=== PATIENT | female | born 1980 | race Caucasian/White ===

== ENCOUNTER 2017-01-05 12:46 | Day surgery (SDC) | payer OTHER ==
[~2017-01-05] VITALS: Ht 172.7 cm; Wt 77.1 kg
[~2017-01-05 12:46] MED LIST: LACT1CAP65 PO; MAGN100T5 PO; PSYL1000 MC
[2017-01-05 13:33] VITALS: BP 128/84; PULSE 67; RESP 16; O2SAT 100
[2017-01-05] MEDS ORDERED: fentaNYL-PF 50 mCg/mL 2 mL Inj IVPUSH PRN (13:45)
[2017-01-05] MEDS ORDERED: 0.9% Sodium Chloride 1,000 ML IV PRN (13:45)
[2017-01-05] MEDS ORDERED: Sodium Chloride LOK Flush 10 mL Syringe IV PRN (13:45)
--- NOTE | 2017-01-05 15:22 | PCM.ENDEGD ---
EGD Date of Service: Jan 05, 2017 Physician Michael Otero MD Pre Procedure Diagnosis: Abdominal pain Post Procedure Dx & Findings: Gastritis Procedure Esophagogastroduodenoscopy PROCEDURE IN DETAIL: After proper sedation, Olympus video endoscope was inserted into patient's mouth and esophagus was successfully intubated. Scope introduced esophagus. Esophagus showed normal shiny whitish mucosa consistent with squamous cell component. Z line was intact at 40 cm from the incisors. Scope further advanced to the stomach. Stomach showed patches of redness irritation consistent with gastritis. Biopsies obtained. Cardia fundus body antrum pylorus were all visualized. Retroflexion was done. Stomach was easily inflated and deflatable using air. Scope further advanced to the distal duodenum. Duodenum revealed normal villous structures with normal appearing folds without any mass ulcer erosion. 5 biopsies obtained. Impression Gastritis Recommendation Await biopsies. Presedation Assessment Risks and Benefits Informed consent was obtained from the patient after all risks and benefits including but not limited to drug reaction, infection, pain, bleeding, perforation, as well as alternatives were discussed. Patient monitoring Continuous pulse oximetry, cardiac monitoring, blood pressure monitoring, IV access, and oxygen at 2L per nasal cannula. Periprocedural Fentanyl: Fentanyl 200mcg Incrementally Midazolam: Midazolam 10mg Incrementally Complications There were no periprocedural complications identified. Post Procedure Plan Post Procedure Recommendations 1. Restrict activities today. 2. Resume normal activities in the morning. 3. Resume medications. 4. GERD behavioral modification: - Avoid fatty, acidic, spicy, large meals - Do not lie down after meals - Do not eat or drink anything for at least 2 1/2 hours before going to bed at night - Discontinue tobacco and alcohol - Decrease or avoid caffeine - Avoid chocolate and mints - Decrease weight - Avoid aspirin and non steroidal anti-inflammatory agents (NSAID) such as Aleve, Advil, Mobic, Naproxen, Ibuprofen, etc 5. Add proton pump inhibitor. Take 30 minutes before 1st meal of the day. 6. Patient informed of normal post procedure side effects as bloating, drowsiness, blood streaking in the stool 7. If gastric biopsy reveal H.pylori, continue with appropriate treatment 8. If small bowel biopsy reveals celiac, continue with appropriate treatment 9. Please don't hesitate to call me with any questions Michael Otero MD Jan 05, 2017 15:22
--- NOTE | 2017-01-05 15:23 | PCM.ENDCOL ---
Colonoscopy Date of Service: Jan 05, 2017 Physician Michael Otero MD Pre Procedure Diagnosis: Abdominal pain and constipation Post Procedure Dx & Findings: Hemorrhoids Procedure Colonoscopy PROCEDURE IN DETAIL: Prep adequate Withdrawal time 10 minutes After unremarkable rectal examination the Olympus video colonoscope was inserted patient's anal canal and was advanced to cecum. Landmarks were identified including the ileocecal valve and appendiceal orifice. Scope advanced to the terminal ileum. Advanced 10 cm. Visualized terminal ileum showed normal villous structures without any ulcerative mass erosions. Scope was withdrawn systematically. Visualized colonic mucosa showed healthy shiny mucosa with normal healthy-appearing vasculature. In the rectum retroflexion was done which showed hemorrhoids. Anal canal was inspected carefully on the way out and hemorrhoids noted. Impression Hemorrhoids Recommendation Follow up with the physician's litigation legal assistant in the GI clinic. Presedation Assessment Risks and Benefits Informed consent was obtained from the patient after all risks and benefits including but not limited to drug reaction, infection, pain, bleeding, perforation, as well as alternatives were discussed. Patient monitoring Continuous pulse oximetry, cardiac monitoring, blood pressure monitoring, IV access, and oxygen at 2L per nasal cannula. Complications There were no periprocedural complications identified. Post Procedure Plan Post Procedure Recommendations 1. Restrict activities today. 2. Resume normal activities in the morning. 3. Resume medications. 4. Patient informed of normal post procedure side effects as bloating, drowsiness, blood streaking in the stool. 5. average risk CRCS. If colon polyps come back as: -Hyperplastic- can repeat colonoscopy in 10 years -Tubular adenoma- repeat colonoscopy in 5 years -Tubulovillous/villous adenoma- repeat colonoscopy in 3 years -If any dysplasia- return to clinic as soon as possible 6. Please don't hesitate to call me with any questions. Michael Otero MD Jan 05, 2017 15:23
[2017-01-05 15:25] VITALS: BP 113/69; PULSE 75; RESP 15; O2SAT 100
[2017-01-05 15:42] VITALS: BP 121/73; PULSE 66; RESP 15; O2SAT 100
[2017-01-05 15:48] VITALS: BP 121/71; PULSE 66; RESP 15; O2SAT 100
--- NOTE | 2017-01-07 16:42 | PATH ---
SURGICAL PATHOLOGY Attending Physician:Michael Otero M.D. CASE STATUS: Signed Out PATIENT NAME: ARCELIA DUFF PID: [id number] : 1980 DATE COLLECTED:01/05/2017 00:00 SPECIMEN: 1: Duodenum, Biopsy 2: Gastric, Biopsy CLINICAL HISTORY: ABDOMINAL PAIN 1). DUODENUM BIOPSY 2). GASTRIC BIOPSY FINAL DIAGNOSIS: 1.DUODENUM BIOPSY: FRAGMENTS OF NORMAL-APPEARING SMALL BOWEL MUCOSA. Normal delicate mucosal villi present. Negative for significant inflammation, dysplasia and malignancy. 2.GASTRIC BIOPSY: FOCUS OF SUPERFICIAL MILD CHRONIC GASTRITIS INVOLVING FUNDIC MUCOSA. Negative for evidence of Helicobacter on H&E stain. Negative for intestinal metaplasia. Negative for dysplasia and malignancy. ICD10 K29.70 GROSS DESCRIPTION: 1. Received in formalin, labeled with the patient's name and "duodenum biopsy" are four fragments of landin soft tissue ranging from 0.2 x 0.1 x 0.1 cm to 0.3 x 0.1 x 0.1 cm. All fragments are totally submitted in cassette 1A. 2. Received in formalin, labeled with the patient's name and "gastric biopsy" are three fragments of landin soft tissue ranging from 0.2 x 0.2 x 0.1 cm to 0.3 x 0.1 x 0.1 cm. All fragments are totally submitted in cassette 2A. [id number]) MICRO DESCRIPTION: See diagnosis. ICD-9 CODES: CPT CODES: 1: 64794 2: 15846 Electronically Signed Out Twin Galindo MD [facility] Pathology [facility] [address], [place] [address] Technical component performed at [facility], [facility] [address], [address]
== END 2017-01-05 23:59 | disposition home or self-care (01) ==
LOC: END 12:46
PROVIDERS: ATTEND Internal Medicine
DX: K59.00 Constipation, unspecified (principal); K64.8 Other hemorrhoids; Z80.0 Family history of malignant neoplasm of digestive organs; K29.50 Unspecified chronic gastritis without bleeding
CPT/HCPCS: 43239; 45378; 99153; G0500; J2250; J3010; J7030